=== PATIENT | male | born 1990 | race African-American/Black ===

== ENCOUNTER 2024-04-28 20:43 | Emergency (ER) | payer OTHER, SELFPAY ==
[2024-04-28 20:52] VITALS: BP 141/84; PULSE 83; TEMP 36.7; O2SAT 100; BMI 25.5
--- NOTE | 2024-04-28 21:02 | ED_ITS ---
HPI - URI/Sore Throat General Chief Complaint: Upper Respiratory Infection Stated Complaint: Upper Respiratory Infection Time Seen by Provider: 04/28/24 20:52 Source: patient Limitations: no limitations History of Present Illness HPI Narrative: Patient is a 34-year-old male who presents to the emergency department for cough and congestion. He states he was diagnosed with strep 1 week ago at the [place] emergency department. He was placed on amoxicillin and states he took about 2 days of the medication when he left the prescription at his mother's home. He did not finish the antibiotics. He now complains of cough and congestion over the last several days. He has had no fevers, vomiting or difficulty breathing. He reports mild sputum production with coughing. Related Data Previous Rx's ?Medication ?Instructions ?Recorded yglzmyeytndylmt-[id number]-JC 10 ml PO Q6H PRN cold symptoms 04/28/24 2 mg-30 mg-10 mg/5 mL oral syrup #200 mL (Bromfed DM) cefdinir 300 mg capsule 300 mg PO BID 10 days #20 caps 04/28/24 ondansetron 4 mg disintegrating 4 mg PO Q6H PRN nausea and 04/28/24 tablet vomiting #12 tabs Allergies Allergy/AdvReac Type Severity Reaction Status Date / Time No Known Drug Allergies Allergy Verified 04/28/24 20:56 Review of Systems ROS Constitutional Denies: fever or chills Ears, nose, mouth, and throat Reports: nasal congestion; Denies: throat pain Cardiovascular Denies: chest pain Respiratory Reports: cough; Denies: shortness of breath Gastrointestinal Denies: nausea, vomiting or diarrhea Musculoskeletal Denies: back pain Integumentary/Breast Denies: rash Neurological Denies: numbness in extremities or weakness in extremities Hematologic/Lymphatic Denies: easy bruising or easy bleeding PFSH PFSH Social History Little interest or pleasure in doing things: not at all Feeling down, depressed, or hopeless: not at all Exam Narrative Exam Narrative: Gen.: Awake, alert, in no distress Head: Normocephalic, atraumatic ENT: Moist mucous membranes, bilateral TMs are clear, no pharyngeal erythema, no tonsillar edema. Uvula midline. Clear speech. Respiratory: No respiratory distress, lungs clear bilaterally Cardio: Regular rate and rhythm Extremities: Moves extremities equally Psych: Normal mood and affect Neuro: No focal neuro deficit Skin: Warm, dry, intact Constitutional Vital Signs, click to edit/add: Last Vital Signs Temp 98.1 F 04/28/24 20:52 Pulse 83 04/28/24 20:52 Resp 18 04/28/24 20:52 BP 141/84 04/28/24 20:52 Pulse Ox 100 04/28/24 20:52 O2 Del Method Room Air 04/28/24 20:52 Course Vital Signs Vital signs: Vital Signs Temperature 98.1 F 04/28/24 20:52 Pulse Rate 83 04/28/24 20:52 Respiratory Rate 18 04/28/24 20:52 Blood Pressure 141/84 04/28/24 20:52 Pulse Oximetry 100 04/28/24 20:52 Oxygen Delivery Method Room Air 04/28/24 20:52 Temperature 98.1 F 04/28/24 20:52 Pulse Rate 83 04/28/24 20:52 Respiratory Rate 18 04/28/24 20:52 Blood Pressure 141/84 04/28/24 20:52 Pulse Oximetry 100 04/28/24 20:52 Oxygen Delivery Method Room Air 04/28/24 20:52 MDM - URI/Sore Throat MDM Narrative Medical decision making narrative: This patient arrives to the emergency department with a benign exam, no significant abnormal findings on physical with normal vital signs. I initially intended to treat the patient with a different course of an antibiotic given his recent positive strep and placed him on medication for his upper respiratory symptoms, however his significant other at bedside states that he needs testing done because she is tired of hospitals just treating you without any testing and states they have children at home so he needs to be tested for upper respiratory illness. COVID, influenza and strep testing was ordered even though it will not global director air and climate change. Lab tests are negative as expected, patient treated with cefdinir based on incomplete treatment of strep throat and duration of symptoms. Bromfed-DM and Zofran given for symptoms for home. Return to the ER if symptoms change or worsen SHARED APC VISIT, PHYSICIAN ATTESTATION: [id number]-ql-[id number] I performed a substantive part of the MDM during the patient?s E/M visit. I personally evaluated and examined the patient. I personally made or approved the documented management plan and acknowledge its risk of complications. Medical Records Attestation: I reviewed the patient's medical records. Lab Data Attestation: I reviewed the patient's lab results. Labs: Lab Results 04/28/24 Range/Units 21:04 Influenza Type A Ag Negative Influenza Type B Ag Negative SARS-CoV-2 Ag (CV2AG) Negative (NEGATIVE) Streptococcus Screen Negative Discharge Plan Discharge Chief Complaint: Upper Respiratory Infection Clinical Impression: Upper respiratory infection Patient Disposition: Home, Self-Care Time of Disposition Decision: 21:46 Condition: Good Prescriptions / Home Meds: New eqispgbkyallseo-ylvvdivte-VY [Bromfed DM] 2-30-10 mg/5 mL syrup 10 ml PO Q6H PRN (Reason: cold symptoms) Qty: 200 0RF ondansetron 4 mg tablet,disintegrating 4 mg PO Q6H PRN (Reason: nausea and vomiting) Qty: 12 0RF cefdinir 300 mg capsule 300 mg PO BID 10 Days Qty: 20 0RF Print Language: Azerbaijani Instructions: Upper Respiratory Infection (ED) Additional Instructions: Your testing in the ER was negative, you need to finish your course of antibiotics and follow up with your doctor Please increase your fluids and you can use Motrin/Tylenol for any fevers or body aches Referrals: Physician,Non-Staff, MD [Primary Care Provider] - 1 week
[2024-04-28] MEDS: DEXAMETHASONE SOD PHOS 10 MG/ML VIAL PO (21:25)
[2024-04-28 21:34] LABS: Internal Control Within Normal Limits; Strep A Antigen Screen Negative
[2024-04-28 21:43] LABS: Influenza Virus A Antigen Negative; Influenza Virus B Antigen Negative; Internal Control Within Normal Limits; SARS-CoV-2 Ag NEGATIVE (NEGATIVE)
[2024-04-28] MEDS: CEFDINIR 300 MG CAPSULE 600 MG PO (22:44)
== END 2024-04-28 22:47 | disposition home or self-care (01) ==
PROVIDERS: Physician Assistant; Emergency Provider Emergency Medicine
DX: J06.9 Acute upper respiratory infection, unspecified (principal)
CPT/HCPCS: 87070; 87804; 87811; 87880; 99285; J1100

== ENCOUNTER 2024-07-22 02:34 | Emergency (ER) | payer OTHER, SELFPAY ==
[2024-07-22 02:43] VITALS: BP 156/99; PULSE 79; TEMP 36.8; O2SAT 97; BMI 25.1
--- NOTE | 2024-07-22 02:47 | PC.NURSE ---
complains of nausea now, but did have dizziness and abdomen pain onset 2 hours ago after smoking weed.
--- NOTE | 2024-07-22 02:49 | ED.NAVMDI1 ---
HPI - Nausea/Vomiting/Diarrhea General Chief complaint: Nausea/Vomiting/Diarrhea Stated complaint: NAUSEA, DIZZINESS, STOMACH PAIN Time Seen by Provider: 07/22/24 02:46 Source: patient Mode of arrival: walk-in Limitations: no limitations History of Present Illness HPI Narrative: patient presents complaining of nausea for the past hour associated with light headiness. Did not pass out but felt like he might. Now that he is here symptoms have resolved. No abdominal or chest pain. Not aware of anyone else who is ill Related Data Home Medications ?Medication ?Instructions ?Recorded ?Confirmed No Known Home Medications 07/22/24 07/22/24 Allergies Allergy/AdvReac Type Severity Reaction Status Date / Time No Known Drug Allergies Allergy Verified 07/22/24 02:42 Review of Systems ROS Status of ROS 10 or more systems reviewed and unremarkable except as noted in history and below PFSH [facility] Social History Little interest or pleasure in doing things: not at all Feeling down, depressed, or hopeless: not at all Exam Constitutional Vital Signs, click to edit/add: Last Vital Signs Temp 98.2 F 07/22/24 02:43 Pulse 79 07/22/24 02:43 Resp 18 07/22/24 02:43 BP 156/99 H 07/22/24 02:43 Pulse Ox 97 07/22/24 02:43 O2 Del Method Room Air 07/22/24 02:43 Common normals: no apparent distress, average body habitus, oriented x3, no limitations, healthy appearing, alert and well nourished [facility] Common normals: normocephalic and head/scalp atraumatic Eye Common normals: PERRL and EOMs intact bilaterally Respiratory Common normals: normal respiratory effort, no retractions, no use of accessory muscles and clear to auscultation bilaterally Cardio Common normals: regular rate, regular rhythm, S1 normal heart sound and S2 normal heart sound GI Common normals: Normal to inspection, nondistended, normoactive bowel sounds present, soft to palpation and non-tender Extremity Common normals: normal to inspection and full ROM Neuro Common normals: oriented x3, CN's II-XII intact bilaterally, moves all extremities and no focal motor deficits Psych Appearance: grossly normal Course Vital Signs Vital signs: Vital Signs Temperature 98.2 F 07/22/24 02:43 Pulse Rate 79 07/22/24 02:43 Respiratory Rate 18 07/22/24 02:43 Blood Pressure 156/99 H 07/22/24 02:43 Pulse Oximetry 97 07/22/24 02:43 Oxygen Delivery Method Room Air 07/22/24 02:43 Temperature 98.2 F 07/22/24 02:43 Pulse Rate 79 07/22/24 02:43 Respiratory Rate 18 07/22/24 02:43 Blood Pressure 156/99 H 07/22/24 02:43 Pulse Oximetry 97 07/22/24 02:43 Oxygen Delivery Method Room Air 07/22/24 02:43 MDM - Nausea/Vomiting/Diarrhea MDM Narrative Medical decision making narrative: patient presents with nausea and near syncope . Ongoing symptoms for close to an hour. Resolved by the time arrived here. Labs etc ordered and he decided he did not want any testing and signed out AMA Discharge Plan Discharge Stand Alone Forms: Portal Instructions Chief Complaint: Nausea/Vomiting/Diarrhea Clinical Impression: Near syncope, Nausea Patient Disposition: Left Against Medical Advice Prescriptions / Home Meds: No Action No Known Home Medications Print Language: Persian Referrals: Physician,Non-Staff, [Primary Care Provider] - 1 week Discharge Date/Time: 07/22/24 03:11
--- NOTE | 2024-07-22 03:11 | PC.NURSE ---
this patient refused all of the orders placed by Dr Calhoun, this patient voices no nausea, no dizziness and no abdomen pain. i informed Dr Calhoun of this patient refusing all of the orders, Dr Calhoun voices have him sign a AMA. i took a AMA form into this patient and I explained to him since he is refusing treatment I will need him to sign this AMA form. this patient refused to sign this AMA. I explained to him that if can come back if he needs to. this patient walked out with a female friend
== END 2024-07-22 03:11 | disposition left against medical advice (07) ==
LOC: ER 02:40
PROVIDERS: Emergency Provider Internal Medicine
DX: R55 Syncope and collapse (principal); Z53.29 Procedure and treatment not carried out because of patient's decision for other reasons; R11.0 Nausea
CPT/HCPCS: 80053; 83605; 83690; 84484; 85378; 99281

== ENCOUNTER 2025-01-18 16:01 | Emergency (ER) | payer OTHER, SELFPAY ==
--- OUTSIDE RECORDS SUMMARY | 2018-04-02 07:00 | XMS_ITS | Continuity of Care Document ---
Author Organization [facility] Address [address] [place] [address] Phone Care Team Providers Care Boot Maker Name Role Phone Jasmin COOK Chandler Unavailable Unavailable Allergies, Adverse Reactions, Alerts Substance Reaction Status Criticality No Known Allergies Active No Inform ation Procedures Procedure Date Limited Oral Eval Panoramic Film Extract; Erupted Th/exposted [address] Nutrit Couns For Control Of [place] Dis Mar Tobacco Counseling Oral Hygiene Instruction Advance Directives Directive Yes / No Effective Date File Name No Information Encounters Encounter Description Practice Location Reason(s) For Visit Diagnoses Date Provider Providers Copied on Encounter [facility], [address], [place], [id number], tel:[phone] Dental Clinic dental emergency (chief complaint) Encounter for screening for dental disorders Jasmin COOK Chandler. [address], [place], [id number], [place]. tel:[phone] Family History Family Member Type Diagnosis Age At Onset Father Problem (finding) Alive and well Mother Problem (finding) Alive and well Payers Payer name Insurance type Covered alliance party ID Authoriza tion(s) D Medicaid [facility] [id number] Social History Type Description Quantity Date Captured Comments Alcohol Use Details Unknown Caffeine Use Details Unknown Tobacco Use Status Moderate cigarette s moker (10-19 cigs/day) Smoking Status Heavy tobacco smoker Smoking Tobacco Use Details Cigarette: Age Started: 18 Cigarette: 10 Cigarettes per day [id number] SexMaleSexual OrientationStraight or [id number] Gender [id number] Vital Signs Date / Time: Height Weight BMI Pulse Rate Blood Pressure Temperature Respiratory Rate Body Surface Area Head Circumference Head Circ. Percentile Wt./Zachary. Percentile BMI percentile Pulse Ox Inhaled Ox 11:05 AM 86 /min 132/79 mm[Hg] Chief Complaint And Reason For Visit From encounter dated '04/02/2018 11:00'. dental emergency (chief complaint). Description: dental emergency patient would like an extraction Reason For Referral Reason For Referral No Information History Of Present Illness Encounter Date Complaint History Of Prese nt Illness dental emergency dental emergenc y patient would like an extraction Functional Status Date Functional Assessmen t No Information Instructions Date Instruction Additional Infor mation No Information Assessments Type Assessment Date assessment Encounter for screening for dent al disorders Patient Care Teams Name Effective Dates (start - stop) Status Members No Information
--- OUTSIDE RECORDS SUMMARY | 2025-01-10 02:26 | XMS_ITS | Encounter Summary ---
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 [phone] Daya Santos, DIRECTOR HARDWARE-PLANTING MATERIAL REMOVER [address] [place] [address] Randi Albrecht, PABrittneeC [address] [place] [address] NameTypePriorityAssociated DiagnosesOrder ScheduleProMedica Physicians [facility] - [place], [place]Outpatient ReferralRoutine Chest pain 1 Occurrences starting 01/11/2025 until 01/11/2026documented as of this encounter Goals GoalPatient Goal TypeAssociated ProblemsRecent ProgressPatient-Stated?Author Home with self care Kyra Fernandes, ROSS Note: Evaluation of progress towards goal: Patient plans to return home with self care. documented as of this encounter Procedures Procedure NamePriorityDate/TimeAssociated DiagnosisCommentsNUC STRESS LEXISCAN Wlvxcel4001/11/2025 10:55 AM EDT EXTRA TUBES BLUE MTPWhvfewz30/21/2025 5:43 AM EDT EXTRA OXHPPKnixlcw44/21/2025 5:43 AM EDT CBC WITH AUTO TAHZKLAXSURSRejkzfm60/21/2025 5:43 AM EDT YHVTDVFSIKgvodjf30/21/2025 5:43 AM EDT COMPREHENSIVE METABOLIC TAKUKAlsodhd19/21/2025 5:43 AM EDT TROPONIN I, HIGH FLGKKPQADCEEXVQ18/20/2025 9:26 PM EDT TROPONIN I, HIGH QSCKGLDGNFWCORI24/20/2025 12:53 PM EDT ECHO COMPLETE WO SYRVDHVQOoinklp41/20/2025 11:21 AM EDT TROP I, HIGH SENSITIVITY 1 EQBVDQWM24/20/2025 3:[address] CTA DTARPOVBZ18/20/2025 3:20 AM EDT TROPONIN I, HIGH SENSITIVITY 0 OGDOPBXU17/20/2025 2:47 AM EDT TROPONIN I, HIGH SENSITIVITY 0 JECRUZIW90/20/2025 2:47 AM EDT CBC WITH AUTO FKOYYXJSAJPDFZWS91/20/2025 2:47 AM EDT BLUE OAYXLBC0301/10/2025 2:47 AM EDT RAINBOW RUHUFMFZ70/20/2025 2:47 AM EDT LIPID PROFILEAdd-On01/10/2025 2:47 AM EDT BASIC METABOLIC TQITFTHFM14/20/2025 2:47 AM EDT ECG 12-VFKPFRVR26/20/2025 2:34 AM EDT ECG 12-OMQQNIAD12/20/2025 2:28 AM EDTdocumented in this encounter Results * Nuc stress Lexiscan (01/11/2025 10:55 AM EDT)ComponentValueRef RangeTest MethodAnalysis TimePerformed AtPathologist SignatureTarget IW277ydnWZZFEJBDDU IO74pdjBCFDTUZERKCabnia peak SF560lxnMNKPVHWOBCXvdzovmo Systolic VK623naOb SECTRAIECGDiastolic QG25aoEzWEUBVOBYAWZzaymt peak systolic OE315kkYuTVAGXLZSDT Diastolic BO75ntVqLAJGRRTMHYCB65ggtJMHREJQMERUiejnc recovery systolic BP128 mmHgSECTRAIECGDiastolic NT66ciDaERYOXULLRZIjgiztk HR59%SECTRAIECGNuc Stress EF 61%SECTRAIECGEnd diastolic volume (mL)134mLSECTRAIECGEnd systolic volume (mL) 61sUJXZWDWKALACQQ6.22SECTRAIECGAnatomical RegionLateralityModalityChestN/A Nuclear Medicine, Nuclear MedicineSpecimen (Source)Anatomical Location / LateralityCollection Method / VolumeCollection TimeReceived Time Narrative 01/11/2025 12:07 PM EDT Stress Function Comments: Left ventricular function post-stress is normal. Stress ejection fraction is 61%. ?No ischemic ECG changes with Lexiscan ?Nuclear study shows a reversible defect in the apex is most likely artifactual but can not rule out a small amount of ischemia ?Normal LV function ?Probably low risk stress test by nuclear criteria Stress Findings A Lexiscan protocol was performed. A pharmacological stress test was performed using regadenoson. The patient reported dyspnea and flushing during the stress test. Symptoms began during stress and ended during recovery. ECG Baseline ECG indicates sinus rhythm. The stress ECG was negative. Isotope Administration The isotope used for nuclear imaging was technetium sestamibi. Imaging was performed at rest after an administration on 01/11/2025 at 07:50 EDT of 10.3 mCi. Imaging was performed at peak stress afteran administration on 01/11/2025 at 09:36 EDT of 30.8 mCi. Nuclear Study Quality A Lexiscan protocol was performed. Perfusion Comments Left ventricular perfusion is probably normal. Based on the perfusion study data, risk of cardiovascular events is low risk. The study is normal. Perfusion Defect There is a left ventricular function defect that is small in size present in the apical location(s)that is reversible. The defect appears to be probable artifact. Perfusion Defect Conclusion TID ratio is 1.22. Stress Function Comments Left ventricular function post-stress is normal. Stress ejection fraction is 61%. Authorizing ProviderResult TypeResult StatusSalomeniharika Santos DIRECTOR HARDWARE-CNPCV STRESS ORDERABLESFinal Result * Light Blue Top (01/11/2025 5:43 AM EDT)ComponentValueRef RangeTest Method Analysis TimePerformed AtPathologist SignatureExtra TubeAuto Resulted 01/11/2025 7:01 AM EDKETTERING [facility]ALTH BEHAVIORAL MEDICAL CENTERpecimen (Source) Anatomical Location / LateralityCollection Method / VolumeCollection Time Received TimeBloodVenous blood / Lycnwax8801/11/2025 5:43 AM EDT1 5:50 AM EDT Narrative Authorizing ProviderResult TypeResult StatusRukishan NUGENT BLOOD ORDERABLESFinal ResultPerforming OrganizationAddressCity/State/ZIP CodePhone Number [facility] [address] [place] [address], * CBC auto differential (01/11/2025 5:43 AM EDT)ComponentValueRef RangeTest MethodAnalysis TimePerformed AtPathologist SignatureWBC8.84 - 11 x10E9/L 01/11/2025 6:04 AM [facility]ITALRBC Count4.714.1 - 5.7 X10E12/L1 6:04 AM [facility] Qxxgeaabav56.413 - 17 g/dL01/11/2025 6:04 AM [facility]ITALHematocrit39.639 - 50 %01/11/2025 6:04 AM EDOH[facility] HOSPITALMCV8480 - 100 fL01/11/2025 6:04 AM EDTPACCESS HOSPITAL DAYTONMCH28.427 - 34 pg01/11/2025 6:04 AM EDOHIOHEALTH HARDIN MEMORIAL HOSPITALMCHC33.832 - 36 g/dL01/11/2025 6:04 AM [facility]ITALRDW14.011.5 - 15 %01/11/2025 6:04 AM [facility]ITALPlatelet Imvss369961 - 450 X10E9/L1 6:04 AM EDT [facility]ITALMPV8.07 - 12 fL01/11/2025 6:04 AM EDT [facility]ITALNeutrophils %60.3%01/11/2025 6:04 AM EDT [facility]ITALLymphocytes %29.8%01/11/2025 6:04 AM EDT [facility]OSPITALMonocytes %8.2%01/11/2025 6:04 AM EDT [facility] HOSPITALEosinophils %0.9%01/11/2025 6:04 AM EDT [facility]ITALBasophils %0.8%01/11/2025 6:04 AM EDT [facility]OS[facility]ITALNeutrophils Absolute (A)5.31.5 - 6.6 10*3/uL01/11/2025 6:04 AM EDOHIOHEALTH HARDIN MEMORIAL HOSPITALLymphocytes Absolute2.61.0 - 3.5 10*3/uL01/11/2025 6:04 AM EDTPMIAMI VALLEY [facility]ITAL HOSPITALMonocytes Absolute0.70.0 - 0.9 10*3/uL01/11/2025 6:04 AM EDTPACCESS HOSPITAL DAYTONEosinophils Absolute0.10.0 - 0.4 10*3/uL01/11/2025 6:04 AM EDOHIOHEALTH HARDIN MEMORIAL HOSPITALBasophils Absolute0.10.0 - 0.2 10*3/uL01/11/2025 6:04 AM [facility]OSPITALDifferential TypeAUTOMATED NZHXCWVVDZAN42/21/2025 6:04 AM [facility] SYSTEMpecimen (Source)Anatomical Location / LateralityCollection Method / VolumeCollection TimeReceived TimeBloodVenous blood / UnknownVenipuncture / Zoozwmv6301/11/2025 5:43 AM EDT1 5:48 AM EDT Narrative Authorizing ProviderResult TypeResult StatusLakisha Mcdonald DIRECTOR HARDWARE-CNPLAB BLOOD ORDERABLESFinal ResultPerforming OrganizationAddressCity/State/ZIP CodePhone Number [address] [place] [address], * Magnesium (01/11/2025 5:43 AM EDT)ComponentValueRef RangeTest MethodAnalysis TimePerformed AtPathologist SignatureMAGNESIUM1.81.8 - 2.6 mg/dL01/11/2025 6:13 AM EDKETTERING HEALTH BEHAVIORAL MEDICAL CENTERpecimen (Source)Anatomical Location / LateralityCollection Method / VolumeCollection TimeReceived Time BloodVenous blood / UnknownVenipuncture / Eykbmfl1401/11/2025 5:43 AM EDT 01/11/2025 5:48 AM EDT Narrative Authorizing ProviderResult TypeResult StatusLakisha Mcdonald DIRECTOR HARDWARE-CNPLAB BLOOD ORDERABLESFinal ResultPerforming OrganizationAddressCity/State/ZIP CodePhone Number [address] [place] [address], [place] * Comprehensive metabolic panel (01/11/2025 5:43 AM EDT)ComponentValueRef Range Test MethodAnalysis TimePerformed AtPathologist PnjpievegCAXXMM383464 - 146 mmol/L1 6:13 AM [facility]OS[facility]ITALPOTASSIUM3.63.5 - 5.0 mmol/L1 6:13 AM [facility] HOSPITALCHLORIDE 14013 - 109 mmol/L1 6:13 AM [facility] CARBON UXFKEDA4439 - 32 mmol/L1 6:13 AM EDOHIOHEALTH HARDIN MEMORIAL HOSPITALANION GAP85 - 15 mmol/L1 6:13 AM [facility]OSPITALBLOOD UREA XEEUVNFU905 - 23 mg/dL01/11/2025 6:13 AM EDT [facility]ITALCREATININE0.980.70 - 1.20 mg/dL01/11/2025 6:13 AM [facility]PITALComment:METHOD TRACEABLE TO IDMS XYGJAINXWLSAQHV9492 - 99 mg/dL01/11/2025 6:13 AM [facility]OSPITALCALCIUM8.88.5 - 10.5 mg/dL01/11/2025 6:13 AM EDOHIOHEALTH HARDIN MEMORIAL HOSPITALTOTAL PROTEIN6.66.0 - 8.0 g/dL01/11/2025 6:13 AM EDT [facility]ITALALBUMIN3.43.2 - 5.3 g/dL01/11/2025 6:13 AM [facility]OSPITALALKALINE GRCRMNWUTWH40528 - 130 U/L 01/11/2025 6:13 AM EDOHIOHEALTH HARDIN MEMORIAL HOSPITALAST13<=41 U/L 01/11/2025 6:13 AM [facility]ITALALT10<=40 U/L 01/11/2025 6:13 AM [facility] HOSPITALBILIRUBIN,TOTAL0.70.3 - 1.2 mg/dL01/11/2025 6:13 AM [facility] HOS[facility]ITALEGFR Non- Race Dependent>90>=60 ml/min/1.73sq.m1 6:13 AM [facility]ITALComment: eGFR not reported due to non-numeric value for Creatinine. Reported eGFR is based on the CKD-EPI 2020 equation that does not use a race coefficient. Specimen (Source)Anatomical Location / LateralityCollection Method / Volume Collection TimeReceived TimeBloodVenous blood / UnknownVenipuncture / Unknown 01/11/2025 5:43 AM EDT1 5:48 AM EDT Narrative Authorizing ProviderResult TypeResult StatusHanjuany Mcdonald DIRECTOR HARDWARE-CNPLAB BLOOD ORDERABLESFinal ResultPerforming OrganizationAddressCity/State/ZIP CodePhone Number [facility] [address] [place] [address], * Troponin I, High Sensitivity (01/10/2025 9:26 PM EDT)ComponentValueRef Range Test MethodAnalysis TimePerformed AtPathologist SignatureTROPONIN I, HIGH SENSITIVITY2<21 ng/L1 10:37 PM [facility] Specimen (Source)Anatomical Location / LateralityCollection Method / Volume Collection TimeReceived TimeBlood (Other)Venipuncture / Efddgbb2201/10/2025 9:26 PM EDT1 9:59 PM EDT Narrative Authorizing ProviderResult TypeResult [facility] CenterLakisha Mcdonald [facility] DANVILLELAB BLOOD ORDERABLESFinal ResultPerforming OrganizationAddressCity/State/ZIP CodePhone Number [address] [place] [address], [place] * Troponin I, High Sensitivity (01/10/2025 12:53 PM EDT)ComponentValueRef Range Test MethodAnalysis TimePerformed AtPathologist SignatureTROPONIN I, HIGH SENSITIVITY2<21 ng/L1 1:35 PM EDTPACCESS HOSPITAL DAYTON Specimen (Source)Anatomical Location / LateralityCollection Method / Volume Collection TimeReceived TimeBlood (Other)Venipuncture / Ucqfmfb3001/10/2025 12:53 PM EDT1 12:57 PM EDT Narrative Authorizing ProviderResult TypeResult [facility] CenterAlbertoabril Mcdonald [facility] DAN[facility]LELAB BLOOD ORDERABLESFinal ResultPerforming OrganizationAddressCity/State/ZIP CodePhone Number [address] [place] [address], [place] * Echo complete W/O contrast (01/10/2025 11:21 AM EDT)ComponentValueRef Range Test MethodAnalysis TimePerformed AtPathologist SignatureLV Systolic Volume 34.98dEHPOAMRJFZ90%WMRQJCNXY9117 - 44 %XCELERALV Diastolic Wjcmzt860.00mL XCELERALVIDd4.855.05 - 7.01 cmXCELERALVIDs3.052.97 - 4.49 cmXCELERAIVS0.730.6 - 1.1 cmXCELERAPW0.810.6 - 1.1 cmXCELERALVOT diameter2.89sjLCCAMBLOYG53.40cm/s XCELERAMV TDI E' (medial)13.00cm/sXCELERALA Volume Index30.0mL/t6CSEHTSQM/A ratio2.30XCELERAE wave deceleration txyy138.00msecXCELERAMV Peak E Shx792.00 cm/sXCELERAMV Peak A Vel46.60cm/sXCELERALA size3.90cmXCELERAAortic root3.10cm XCELERALA .88zf0NJAASSAGQ diastolic dimension (basal)38.3mmXCELERA TAPSE2.47cmXCELERAAV peak bib691.00cm/sXCELERALVOT peak vel1.00m/sXCELERAAV peak gradient8.29mmHgXCELERAMV pressure 1/2 time67.00msXCELERAMV valve area p 1/2 method3.53jp9WVAJYSNJZ Peak Vel2.1m/sXCELERATR peak oihtwxef46.31mmHg XCELERALV ESV A2C55.60mLXCELERALV ESV A4C60.10mLXCELERALV RWT 2D33.48XCELERA Echo EF Sddllyhuu66%XCELERALeft Ventricle Kpkk839.001536211705370yMKWDZRB Interventricular Septum Diastolic Thickness by 2D7.32cmXCELERAEst. RA pressure 3mmHgXCELERARV Peak Systolic Wdjnqdpt27ijCzUKRRVFYJJ max vel2.10m/sXCELERAMV E' atdoost21.0cm/gPOZCOFJNEOT05.2cm/sXCELERARA area17.8rn1MMLTNOTUTWJXZ-0.42 XCELERAZLVIDD-2.05XCELERAEnergy loss index15.24XCELERAAnatomical Region LateralityModalityChestN/AUltrasoundSpecimen (Source)Anatomical Location / LateralityCollection Method / VolumeCollection TimeReceived Time Narrative 01/10/2025 1:25 PM EDT Left Ventricle: Left ventricle appears normal in size. Systolic function is normal with an ejection fraction of 65-70%. The quantitative EF by 2D Macedo biplane is 69%. Left Ventricle Left ventricle appears normal in size. Wall thickness is normal. Systolic function is normal with an ejection fraction of 65-70%. The quantitative EF by 2D Macedo biplane is 69%. No obvious regionalwall motion abnormalities. There is no diastolic dysfunction and normal left atrial pressure. Lateral E' is 15.40 cm/s. Medial E' is 13.00 cm/s. Average E' is 14.0 cm/s. Right Ventricle Right ventricular size appears normal. The right ventricular basal diameter is 38.3 mm. Systolic function is normal. Left Atrium Left atrium is normal in size. The left atrial volume index is 30.0 mL/m2. Right Atrium Right atrium is normal in size. The right atrial area is 17.0 cm2. IVC/SVC The right atrial pressure is estimated at 3 mmHg. IVC appears normal. There is normal collapse withdeep inspiration. Mitral Valve The leaflets are mildly thickened and exhibit normal excursion. There is trace regurgitation. Thereis no evidence of mitral valve stenosis. Tricuspid Valve Tricuspid valve appears to be normal. There is trace to mild regurgitation. RVSP calculated at 20 mmHg. RVSP is based on RA pressure of 3 mmHg. Aortic Valve The aortic valve is trileaflet. There is no regurgitation or stenosis. Pulmonic Valve Pulmonic valve structure is grossly normal. There is mild regurgitation. Ascending Aorta The aortic root is normal in size. Pericardium There is no pericardial effusion. Study Details A complete echo was performed using complete 2D, color flow Doppler and spectral Doppler. Overall the study quality was adequate. Wall Scoring Baseline Score Index: 1.00 The left ventricular wall motion is normal. Authorizing ProviderResult TypeResult StatusLakisha ROECV ECHO ORDERABLESFinal Result * Troponin I, High Sensitivity 1 Hour (01/10/2025 3:55 AM EDT)ComponentValueRef RangeTest MethodAnalysis TimePerformed AtPathologist SignatureTROPONIN I, HIGH SENSITIVITY3<21 ng/L1 4:25 AM [facility]TPROM[facility] Specimen (Source)Anatomical Location / LateralityCollection Method / Volume Collection TimeReceived TimeBloodVenous blood / UnknownVenipuncture / Unknown 01/10/2025 3:55 AM EDT1 3:57 AM EDT Narrative Authorizing ProviderResult TypeResult StatusRj MADSEN BLOOD ORDERABLESFinal ResultPerforming OrganizationAddressCity/State/ZIP CodePhone Number [facility] [address] [place] [address], * CT angiogram chest (01/10/2025 3:20 AM EDT)Anatomical RegionLateralityModality Lung, Body, Chest, Vascular, Body CoveraN/AComputed TomographySpecimen (Source)Anatomical Location / LateralityCollection Method / VolumeCollection TimeReceived Time01/10/2025 3:31 AM EDT Narrative 01/10/2025 3:36 AM EDT CTA CHEST COMPARISON: ??03/14/2023 HISTORY: chest pain with radiation to shoulder, recent surgery. TECHNIQUE: Omnipaque 350 nonionic contrast injected intravenously without reported complication. Thin section axial images of the thorax obtained with multiplanar reformatted 3-D MIP images of the thorax generated under concurrent physician supervision and reviewed. ??Automatic exposure control (AEC) was utilized. FINDINGS: No evidence for acute main, central, or lobar pulmonary emboli. ??Evaluation for segmental and subsegmental emboli is compromised by patient motion artifact, artifact from dense contrast in the SVC and left brachiocephalic vein, and contrast bolus timing. No pneumothorax. No pleural or pericardial effusion. No focal consolidation. IMPRESSION: 1. No evidence for acute main, central, or lobar pulmonary emboli. ??Evaluation for segmental and subsegmental emboli is compromised as described. 2. No other evidence for an acute cardiopulmonary process. All CT scans at this facility use dose modulation, iterative reconstruction, and/or weight based dosing when appropriate to reduce radiation dose to as low as reasonably achievable. Finalized by Olivier Shannon MD on 01/10/2025 3:36 AM Procedure Note Olivier Shannon MD - 01/10/2025 CTA CHEST COMPARISON: 03/14/2023 HISTORY: chest pain with radiation to shoulder, recent surgery. TECHNIQUE: Omnipaque 350 nonionic contrast injected intravenously without reported complication. Thin section axial images of the thorax obtainedwith multiplanar reformatted 3-D MIP images of the thorax generated underconcurrent physician supervision and reviewed. Automatic exposure control(AEC) was utilized. FINDINGS: No evidence for acute main, central, or lobar pulmonary emboli.Evaluation for segmental and subsegmental emboli is compromised by patientmotion artifact, artifact from dense contrast in the SVC and leftbrachiocephalic vein, and contrast bolus timing. No pneumothorax. Nopleural or pericardial effusion. No focal consolidation. IMPRESSION: 1. No evidence for acute main, central, or lobar pulmonary emboli.Evaluation for segmental and subsegmental emboli is compromised asdescribed. 2. No other evidence for an acute cardiopulmonary process. All CT scans at this facility use dose modulation, iterativereconstruction, and/or weight based dosing when appropriate to reduceradiation dose to as low as reasonably achievable. Finalized by Olivier Shannon MD on 01/10/2025 3:36 AM Authorizing ProviderResult TypeResult StatusRj Gomez [facility] CT ORDERABLESFinal Result * (ABNORMAL) Lipid profile (01/10/2025 2:47 AM EDT)ComponentValueRef RangeTest MethodAnalysis TimePerformed AtPathologist SsuagqaihJRYCEEFQZBA494(L)150 - 200 mg/dL01/10/2025 10:39 AM [facility] LABORATORYTRIGLYCERIDE [address]506 - 150 mg/dL01/10/2025 10:39 AM [facility] LABORATORYHDL VNWSYLEISJA89>39 mg/dL01/10/2025 10:39 AM [facility] LABORATORYComment: HDL <40 mg/dL - High Risk HDL > or = 40mg/dL- Desirable HDL >60 mg/dL - Negative Risk LDL (CALC)81<130 mg/dL01/10/2025 10:39 AM [facility] Comment: LDL <100 mg/dL - Desirable LDL >160 mg/dL - High Risk CHOLESTEROL:HDL3.41.0 - 5.010 10:39 AM [facility] LABORATORYVERY LOW TPLMQXTJGKL478 - 30 mg/dL01/10/2025 10:39 AM [facility] LABORATORYSpecimen (Source)Anatomical Location / Laterality Collection Method / VolumeCollection TimeReceived TimeBloodVenous blood / Wcuoioy1701/10/2025 2:47 AM EDT1 2:51 AM EDT Narrative Authorizing ProviderResult TypeResult StatusLakisha Mcdonald APRN-CNPLAB BLOOD ORDERABLESFinal ResultPerforming OrganizationAddressCity/State/ZIP CodePhone Number [facility] [address] [place] [address], [place] [phone] * Light Blue Top (01/10/2025 2:47 AM EDT)ComponentValueRef RangeTest Method Analysis TimePerformed AtPathologist SignatureExtra TubeAuto Resulted 01/10/2025 4:03 AM [facility]pecimen (Source) Anatomical Location / LateralityCollection Method / VolumeCollection Time Received TimeBloodVenous blood / Qayqbhb0501/10/2025 2:47 AM EDT1 2:51 AM EDT Narrative Authorizing ProviderResult TypeResult StatusMaxwell J Buchwalder [facility]AB BLOOD ORDERABLESFinal ResultPerforming OrganizationAddressCity/State/ZIP CodePhone Number [address] [place] [address], [place] * Troponin I, High Sensitivity 0 Hour (01/10/2025 2:47 AM EDT)ComponentValueRef RangeTest MethodAnalysis TimePerformed AtPathologist SignatureTROPONIN I, HIGH SENSITIVITY3<21 ng/L1 3:19 AM [facility] Specimen (Source)Anatomical Location / LateralityCollection Method / Volume Collection TimeReceived TimeBloodVenous blood / Tzfubty3501/10/2025 2:47 AM EDT 01/10/2025 2:51 AM EDT Narrative Authorizing ProviderResult TypeResult StatusMaxwell J St. [facility]S Medical Centerwalder [facility]ITALAB BLOOD ORDERABLESFinal ResultPerforming OrganizationAddressty/State/ZIP CodePhone Number [address] [place] [address], [place] * (ABNORMAL) Basic Metabolic Panel (01/10/2025 2:47 AM EDT)ComponentValueRef RangeTest MethodAnalysis TimePerformed AtPathologist TigqmisszEZVWQC499640 - 146 mmol/L1 3:06 AM [facility]PITALPOTASSIUM 4.03.5 - 5.0 mmol/L1 3:06 AM [facility] GNJWFJZD50312 - 109 mmol/L1 3:06 AM [facility] HOSPITALCARBON QEJOHRA5858 - 32 mmol/L1 3:06 AM [facility] HOSPITALANION GAP85 - 15 mmol/L1 3:06 AM [facility] HOSPITALBLOOD UREA NMDQGTMZ983 - 23 mg/dL01/10/2025 3:06 AM [facility]OSPITALCREATININE1.31(H)0.70 - 1.20 mg/dL 01/10/2025 3:06 AM [facility]PITALComment:METHOD TRACEABLE TO IDMS GOERHGODHZTURDH0269 - 99 mg/dL01/10/2025 3:06 AM EDT [facility]ITALCALCIUM9.28.5 - 10.5 mg/dL01/10/2025 3:06 AM [facility] HOSPITALEGFR Non-Race Wbfnlbcdy73>=60 ml/min/1.73sq.m1 3:06 AM [facility] Comment: eGFR not reported due to non-numeric value for Creatinine. Reported eGFR is based on the CKD-EPI 2020 equation that does not use a race coefficient. Specimen (Source)Anatomical Location / LateralityCollection Method / Volume Collection TimeReceived TimeBloodVenous blood / Gfnjeqz5201/10/2025 2:47 AM EDT 01/10/2025 2:51 AM EDT Narrative Authorizing ProviderResult TypeResult StatusMaxivory MADSEN BLOOD ORDERABLESFinal ResultPerforming OrganizationAddressCity/State/ZIP CodePhone Number [facility] [address] [place] [address], * (ABNORMAL) CBC auto differential (01/10/2025 2:47 AM EDT)ComponentValueRef RangeTest MethodAnalysis TimePerformed AtPathologist SignatureWBC8.14 - 11 x10E9/L1 3:03 AM [facility] HOSPITALRBC Count4.58 4.1 - 5.7 X10E12/L1 3:03 AM [facility]OH[facility] Uwwaxcyysa37.013 - 17 g/dL01/10/2025 3:03 AM EDOHIOHE[facility]ARDIN [facility]ORIAL HOSPITALHematocrit38.8(L)39 - 50 %01/10/2025 3:03 AM EDOHIOHE[facility]IN [facility]OR[facility] HOSPITALMCV8580 - 100 fL01/10/2025 3:03 AM EDOHIOHE[facility]ARDIN [facility]ORIAL HOSPITALMCH28.427 - 34 pg01/10/2025 3:03 AM EDOHIOHE[facility]ARDIN [facility]ORIAL HOSPITALMCHC33.532 - 36 g/dL01/10/2025 3:03 AM EDOHIOHEALTH HARDIN MEMORIAL HOSPITALRDW13.911.5 - 15 %01/10/2025 3:03 AM EDOHIOHEALTH HARDIN MEMORIAL HOSPITALPlatelet Urtpj377726 - 450 X10E9/L1 3:03 AM EDT [facility]ITALMPV8.27 - 12 fL01/10/2025 3:03 AM EDT [facility] HOSPITALNeutrophils %50.6%01/10/2025 3:03 AM EDT [facility] HOSPITALLymphocytes %39.6%01/10/2025 3:03 AM EDT [facility]PITALMonocytes %7.5%01/10/2025 3:03 AM EDT [facility]OS[facility]ITALEosinophils %1.3%01/10/2025 3:03 AM EDT [facility]OS[facility]ITALBasophils %1.0%01/10/2025 3:03 AM EDT [facility]ITALNeutrophils Absolute (A)4.11.5 - 6.6 10*3/uL01/10/2025 3:03 AM EDTPACCESS [facility] DAYTONLymphocytes Absolute3.21.0 - 3.5 10*3/uL01/10/2025 3:03 AM EDTPACCESS [facility]OSPITAL DAYTONMonocytes Absolute0.60.0 - 0.9 10*3/uL01/10/2025 3:03 AM EDOH[facility]ITALEosinophils Absolute0.10.0 - 0.4 10*3/uL01/10/2025 3:03 AM EDOH[facility]PITALBasophils Absolute0.10.0 - 0.2 10*3/uL01/10/2025 3:03 AM [facility]ITALDifferential TypeAUTOMATED AKNKREKWAEQY35/20/2025 3:03 AM [facility] SYSTEMpecimen (Source)Anatomical Location / LateralityCollection Method / VolumeCollection TimeReceived TimeBloodVenous blood / Riqpocr8701/10/2025 2:47 AM EDT1 2:51 AM EDT Narrative Authorizing ProviderResult TypeResult StatusMaxivory Gomez DOL BLOOD ORDERABLESFinal ResultPerforming OrganizationAddressCity/State/ZIP CodePhone Number [facility] [address] [place] [address], * ECG 12 lead (01/10/2025 2:34 AM EDT)Specimen (Source)Anatomical Location / LateralityCollection Method / VolumeCollection TimeReceived Time01/10/2025 2:34 AM EDT Narrative TRACEMASTERVUE - 01/10/2025 8:09 AM EDT Authorizing ProviderResult TypeResult StatusNew Roadsivory Gomez [facility] [place] ORDERABLESFinal ResultPerforming OrganizationAddressty/[facility]/ZIP CodePhone Number TRACEMASTERVUE * ECG 12 lead (01/10/2025 2:28 AM EDT)Specimen (Source)Anatomical Location / LateralityCollection Method / VolumeCollection TimeReceived Time01/10/2025 2:28 AM EDT Narrative Authorizing ProviderResult TypeResult StatusNew Roadsivory Gomez DOECG ORDERABLESFinal ResultPerforming OrganizationAddressCity/State/ZIP CodePhone Number TRACEMASTERVUE documented in this encounter Visit Diagnoses Diagnosis Chest pain- Primary Unspecified chest pain Chest pain Unspecified chest pain Tobacco abuse Tobacco use disorder Alcohol abuse Nondependent alcohol abuse, unspecified drinking behavior documented in this encounter Admitting Diagnoses Diagnosis Chest pain Unspecified chest pain documented in this encounter Administered Medications Medication OrderMAR ActionAction DateDoseRateSite acetaminophen (TYLENOL) tablet 650 mg 650 mg, oral, Every 6 hours PRN, mild pain - pain scale 1-3, temperature greater than 38 C, Starting on Fri01/10/25 at 0446, [Warning: Total Acetaminophen not to exceed more than 4 grams (4000 mg) in 24 hours] alum-mag hydroxide-simeth (MAALOX) 200-200-20 mg/5 mL suspension 30 mL 30 mL, oral, 4 times daily after meals and at bedtime as needed, dyspepsia, Starting on Fri01/10/25 at 0446, Look-alike/sound-alike medication - verify indication for use. [place] fernández, Indications: dyspepsia Indications:dyspepsia enoxaparin (LOVENOX) syringe 40 mg 40 mg, subcutaneous, Every 24 hours scheduled, First dose on Fri01/11/25 at 0600, Look-alike/sound-alike medication - verify indication for use. Given01/11/2025 6:13 AM EDT40 mgLeft Arm gabapentin (NEURONTIN) capsule 300 mg 300 mg, oral, Daily, First dose on Fri01/10/25 at 1900, Look-alike/sound-alike medication - verifyindication for use. Given01/11/2025 10:05 AM BEK392 arTyqtk4301/10/2025 8:28 PM EEK763 mg HYDROcodone-acetaminophen (NORCO) 5-325 mg per tablet 1 tablet 1 tablet, oral, Daily, First dose on Fri01/10/25 at 1900, Look-alike/sound-alike medication - verify indication for use. Given01/11/2025 10:05 AM EDT1 ebqkzeTninq79/20/2025 8:28 PM EDT1 tablet iohexoL (OMNIPAQUE) 350 mg iodine/mL injection 100 mL 100 mL, intravenous, Once in imaging, contrast, Starting on Fri01/10/25 at 0259, For 1 dose, VESICANT (RED) Given01/10/2025 3:24 AM CWH323 mL kit for Tc 99m-sestamibi injection 10 millicurie 10 millicurie, intravenous, Once in imaging, contrast, Radiopharmaceutical, Starting on Fri01/11/25 at 0800, For 1 dose, Indications: diagnostic imaging Indications:diagnostic ushflfbXrbnz51/21/2025 7:50 AM EDT10 millicuries kit for Tc 99m-sestamibi injection 30 millicurie 30 millicurie, intravenous, Once in imaging, contrast, Radiopharmaceutical, Starting on Fri01/11/25 at 0800, For 1 dose, Indications: diagnostic imaging Indications:diagnostic ehuxccrEfydp91/21/2025 9:36 AM EDT30 millicuries magnesium sulfate IVPB 2000 mg/50 mL in iso-osmotic water (40 mg/mL premix) 2,000 mg, intravenous, at 25 mL/hr, Administer over 120 Minutes, As needed, Magnesium level 1.7-1.9, Starting on Fri01/10/25 at 0447, Recheck magnesium level 4 hours after infusion complete. With each magnesium result continue the replacement orders as needed. New 01/11/2025 11:26 AM EDT2,000 mg25 mL/hr magnesium sulfate IVPB 4000 mg/100 mL in iso-osmotic water (40 mg/mL premix) 4,000 mg, intravenous, at 25 mL/hr, Administer over 240 Minutes, As needed, Magnesium level 1.6 mg/dL or less, Starting on Fri01/10/25 at 0447, Recheck magnesium level 4 hours after infusion complete. With each magnesium result continue the replacement orders as needed. nitroglycerin (NITROSTAT) disintegrating tablet 0.4 mg 0.4 mg, sublingual, Every 5 min PRN, chest pain, Starting on Fri01/10/25 at 0512, Administer up to3 doses. Hold nitrates and notify prescriber as needed for Systolic Blood Pressure less than 100 mmHg. ondansetron (PF) (ZOFRAN) injection 4 mg 4 mg, intravenous, Every 4 hours PRN, nausea, vomiting, Starting on Fri01/10/25 at 0446, Intravenous administration preferred to be given over 2-5 minutes. potassium chloride (KAYCIEL) 20 mEq/15 mL solution 30-40 mEq 30-40 mEq, oral, As needed, Potassium Supplementation, Starting on Fri01/10/25 at 0447, Progress to oral potassium replacement when patient tolerating oral intake. If dose administered, recheck potassium level 4 hours after last dose. For potassium level 3.4 to 3.8 mmol/L and GFR 30 mL/min or greater=30 mEq. For potassium level 3.1 to 3.3 mmol/L and GFR 30 mL/min or greater=40 mEq. For potassiumlevel 3 mmol/L or less and GFR 30 mL/min or greater=50 mEq. Must dilute before use - Mix in 3-8 ounces of water or juice before administration When administering in feeding tube, flush before and after per policy and monitor potassium levels potassium chloride (KLOR-CON M 20) CR tablet 30-40 mEq 30-40 mEq, oral, As needed, Potassium Supplementation, Starting on Fri01/10/25 at 0447, Progress to oral potassium replacement when patient tolerating oral intake. If dose administered, recheck potassium level 4 hours after last dose. For potassium level 3.4 to 3.8 mmol/L and GFR 30 mL/min or greater=30 mEq. For potassium level 3.1 to 3.3 mmol/L and GFR 30 mL/min or greater=40 mEq. For potassiumlevel 3 mmol/L or less and GFR 30 mL/min or greater=50 mEq. Do not crush or chew. Given01/11/2025 11:23 AM EDT30 mEq potassium chloride IVPB 10 mEq/100 mL in water (0.1 mEq/mL premix) 10 mEq, intravenous, at 100 mL/hr, Administer over 60 Minutes, As needed, POTASSIUM REPLACEMENT, Starting on Fri01/10/25 at 0447, IV if unable to use oral/enteral with the current dosing strategies Potassium level 3 mmol/L or less administer Potassium Chloride 50 mEq Potassium level 3.1 to 3.3 mmol/L administer Potassium Chloride 40 mEq Potassium level 3.4 to 3.8 mmol/L administer Potassium Chloride 30 mEq Use central line when applicable. Recheck potassium level 1 hour after total IVPB infusion complete, With each potassium result continue the replacement orders as needed VESICANT (YELLOW) Infuse each 10 mEq over a minimum of 1 hour. regadenoson (LEXISCAN) injection 0.4 mg 0.4 mg, intravenous, Once, On Fri01/11/25 at 0800, For 1 dose, Intra-Procedure (CV), Administer over 10 seconds followed by 5 mL saline flush. Given01/11/2025 9:36 AM EDT0.4 mg sennosides-docusate sodium (SENOKOT-S) 8.6-50 mg 1 tablet 1 tablet, oral, Every 12 hours PRN, constipation, Starting on Fri01/10/25 at 0446 sodium chloride 0.9 % flush 10 mL 10 mL, intravenous, As needed, line care, Starting on Fri01/10/25 at 0259 Given01/10/2025 3:24 AM EDT10 mL sodium chloride 0.9 % flush 10 mL 10 mL, intravenous, Once in imaging, line care, Nuclear Medicine, Starting on Fri01/11/25 at 0800,For 1 dose Given01/11/2025 9:36 AM EDT10 mL sodium chloride 0.9 % flush 10 mL 10 mL, intravenous, Once in imaging, line care, Nuclear Medicine, Starting on Fri01/11/25 at 0800,For 1 dose Given01/11/2025 7:50 AM EDT10 mL sodium chloride 0.9 % flush 3 mL 3 mL, intravenous, As needed, line care, before and after each intermittent use, Starting on Fri01/11/25 at 0749, Intra-Procedure (CV) sodium chloride 0.9 % flush 3 mL 3 mL, intravenous, Every 12 hours scheduled, First dose on Fri01/11/25 at 0900, Intra-Procedure (CV) sodium chloride 0.9 % radiology injection 80 mL, intravenous, Once in imaging, pre/post contrast, Starting on Fri01/10/25 at 0259, For 1 dose Given01/10/2025 3:24 AM EDT80 mLdocumented in this encounter Active and Recently Administered Medications Times are shown in EDT.Medication Order/ enoxaparin (LOVENOX) syringe 40 mg 40 mg, subcutaneous, Every 24 hours scheduled, First dose on Fri01/11/25 at 0600, Look-alike/sound-alike medication - verify indication for use. * 0613 (Given - Provider: Heather Robles RN) gabapentin (NEURONTIN) capsule 300 mg 300 mg, oral, Daily, First dose on Fri01/10/25 at 1900, Look-alike/sound-alike medication - verifyindication for use. * 2027 (Given - Provider: Heather Robles RN) * 1005 (Given - Provider: Amber Bae, ROSS) HYDROcodone-acetaminophen (NORCO) 5-325 mg per tablet 1 tablet 1 tablet, oral, Daily, First dose on Fri01/10/25 at 1900, Look-alike/sound-alike medication - verify indication for use. * 2027 (Given - Provider: Heather Robles RN) * 1005 (Given - Provider: Amber Bae, RN) regadenoson (LEXISCAN) injection 0.4 mg (COMPLETED) 0.4 mg, intravenous, Once, On Fri01/11/25 at 0800, For 1 dose, Intra-Procedure (CV), Administer over 10 seconds followed by 5 mL saline flush. * 0936 (Given - Provider: Alissa Russo RN) sodium chloride 0.9 % flush 3 mL 3 mL, intravenous, Every 12 hours scheduled, First dose on Fri01/11/25 at 0900, Intra-Procedure (CV) * 0900 (Not Given - Provider: Amber Bae, ROSS - Reason: Patient not available) Medication Order// acetaminophen (TYLENOL) tablet 650 mg 650 mg, oral, Every 6 hours PRN, mild pain - pain scale 1-3, temperature greater than 38 C, Starting on Fri01/10/25 at 0446, [Warning: Total Acetaminophen not to exceed more than 4 grams (4000 mg) in 24 hours] alum-mag hydroxide-simeth (MAALOX) 200-200-20 mg/5 mL suspension 30 mL 30 mL, oral, 4 times daily after meals and at bedtime as needed, dyspepsia, Starting on Fri01/10/25 at 0446, Look-alike/sound-alike medication - verify indication for use. Laurentke well., Indications: dyspepsia iohexoL (OMNIPAQUE) 350 mg iodine/mL injection 100 mL (COMPLETED) 100 mL, intravenous, Once in imaging, contrast, Starting on Fri01/10/25 at 0259, For 1 dose, VESICANT (RED) * 0324 (Given - Provider: Prabha Valverde) kit for Tc 99m-sestamibi injection 10 millicurie (COMPLETED) 10 millicurie, intravenous, Once in imaging, contrast, Radiopharmaceutical, Starting on Fri01/11/25 at 0800, For 1 dose, Indications: diagnostic imaging * 0750 (Given - Provider: Justina Dunn - Comment: 10.3 mCi Cardiolite) kit for Tc 99m-sestamibi injection 30 millicurie (COMPLETED) 30 millicurie, intravenous, Once in imaging, contrast, Radiopharmaceutical, Starting on Fri01/11/25 at 0800, For 1 dose, Indications: diagnostic imaging * 0936 (Given - Provider: Justina Dunn - Comment: 30.8 mCi Cardiolite) magnesium sulfate IVPB 2000 mg/50 mL in iso-osmotic water (40 mg/mL premix) 2,000 mg, intravenous, at 25 mL/hr, Administer over 120 Minutes, As needed, Magnesium level 1.7-1.9, Starting on Fri01/10/25 at 0447, Recheck magnesium level 4 hours after infusion complete. With each magnesium result continue the replacement orders as needed. * 1126 (New Bag - Provider: Amber Bae, ROSS) * 1241 (Stop Bag - Provider: Amber Bae, ROSS) magnesium sulfate IVPB 4000 mg/100 mL in iso-osmotic water (40 mg/mL premix) 4,000 mg, intravenous, at 25 mL/hr, Administer over 240 Minutes, As needed, Magnesium level 1.6 mg/dL or less, Starting on Fri01/10/25 at 0447, Recheck magnesium level 4 hours after infusion complete. With each magnesium result continue the replacement orders as needed. * 1032 (Canceled Entry - Provider: Amber Bae, ROSS) nitroglycerin (NITROSTAT) disintegrating tablet 0.4 mg 0.4 mg, sublingual, Every 5 min PRN, chest pain, Starting on Fri01/10/25 at 0512, Administer up to3 doses. Hold nitrates and notify prescriber as needed for Systolic Blood Pressure less than 100 mmHg. ondansetron (PF) (ZOFRAN) injection 4 mg 4 mg, intravenous, Every 4 hours PRN, nausea, vomiting, Starting on Fri01/10/25 at 0446, Intravenous administration preferred to be given over 2-5 minutes. potassium chloride (KAYCIEL) 20 mEq/15 mL solution 30-40 mEq(Linked Group 1) 30-40 mEq, oral, As needed, Potassium Supplementation, Starting on Fri01/10/25 at 0447, Progress to oral potassium replacement when patient tolerating oral intake. If dose administered, recheck potassium level 4 hours after last dose. For potassium level 3.4 to 3.8 mmol/L and GFR 30 mL/min or greater=30 mEq. For potassium level 3.1 to 3.3 mmol/L and GFR 30 mL/min or greater=40 mEq. For potassiumlevel 3 mmol/L or less and GFR 30 mL/min or greater=50 mEq. Must dilute before use - Mix in 3-8 ounces of water or juice before administration When administering in feeding tube, flush before and after per policy and monitor potassium levels * 1123 (See Alternative - Provider: Amber Bae RN) potassium chloride (KLOR-CON M 20) CR tablet 30-40 mEq(Linked Group 1) 30-40 mEq, oral, As needed, Potassium Supplementation, Starting on Fri01/10/25 at 0447, Progress to oral potassium replacement when patient tolerating oral intake. If dose administered, recheck potassium level 4 hours after last dose. For potassium level 3.4 to 3.8 mmol/L and GFR 30 mL/min or greater=30 mEq. For potassium level 3.1 to 3.3 mmol/L and GFR 30 mL/min or greater=40 mEq. For potassiumlevel 3 mmol/L or less and GFR 30 mL/min or greater=50 mEq. Do not crush or chew. * 1123 (Given - Provider: Amber Bae RN) potassium chloride IVPB 10 mEq/100 mL in water (0.1 mEq/mL premix)(Linked Group 1) 10 mEq, intravenous, at 100 mL/hr, Administer over 60 Minutes, As needed, POTASSIUM REPLACEMENT, Starting on Fri01/10/25 at 0447, IV if unable to use oral/enteral with the current dosing strategies Potassium level 3 mmol/L or less administer Potassium Chloride 50 mEq Potassium level 3.1 to 3.3 mmol/L administer Potassium Chloride 40 mEq Potassium level 3.4 to 3.8 mmol/L administer Potassium Chloride 30 mEq Use central line when applicable. Recheck potassium level 1 hour after total IVPB infusion complete, With each potassium result continue the replacement orders as needed VESICANT (YELLOW) Infuse each 10 mEq over a minimum of 1 hour. * 1123 (See Alternative - Provider: Amebr Bae, ROSS) sennosides-docusate sodium (SENOKOT-S) 8.6-50 mg 1 tablet 1 tablet, oral, Every 12 hours PRN, constipation, Starting on Fri01/10/25 at 0446 sodium chloride 0.9 % flush 10 mL 10 mL, intravenous, As needed, line care, Starting on Fri01/10/25 at 0259 * 0324 (Given - Provider: Prabha Valverde) sodium chloride 0.9 % flush 10 mL (COMPLETED) 10 mL, intravenous, Once in imaging, line care, Nuclear Medicine, Starting on Fri01/11/25 at 0800,For 1 dose * 0936 (Given - Provider: Justina Dunn) sodium chloride 0.9 % flush 10 mL (COMPLETED) 10 mL, intravenous, Once in imaging, line care, Nuclear Medicine, Starting on Fri01/11/25 at 0800,For 1 dose * 0750 (Given - Provider: Justina Dunn) sodium chloride 0.9 % flush 3 mL 3 mL, intravenous, As needed, line care, before and after each intermittent use, Starting on Fri01/11/25 at 0749, Intra-Procedure (CV) sodium chloride 0.9 % radiology injection (COMPLETED) 80 mL, intravenous, Once in imaging, pre/post contrast, Starting on Fri01/10/25 at 0259, For 1 dose * 0324 (Given - Provider: Prabha Valverde) Order Group 1: potassium chloride (KLOR-CON M 20) CR tablet 30-40 mEqJump to med 30-40 mEq, oral, As needed, Potassium Supplementation, Starting on Fri01/10/25 at 0447, Progress to oral potassium replacement when patient tolerating oral intake. If dose administered, recheck potassium level 4 hours after last dose. For potassium level 3.4 to 3.8 mmol/L and GFR 30 mL/min or greater=30 mEq. For potassium level 3.1 to 3.3 mmol/L and GFR 30 mL/min or greater=40 mEq. For potassiumlevel 3 mmol/L or less and GFR 30 mL/min or greater=50 mEq. Do not crush or chew. Or potassium chloride (KAYCIEL) 20 mEq/15 mL solution 30-40 mEqJump to med 30-40 mEq, oral, As needed, Potassium Supplementation, Starting on Fri01/10/25 at 0447, Progress to oral potassium replacement when patient tolerating oral intake. If dose administered, recheck potassium level 4 hours after last dose. For potassium level 3.4 to 3.8 mmol/L and GFR 30 mL/min or greater=30 mEq. For potassium level 3.1 to 3.3 mmol/L and GFR 30 mL/min or greater=40 mEq. For potassiumlevel 3 mmol/L or less and GFR 30 mL/min or greater=50 mEq. Must dilute before use - Mix in 3-8 ounces of water or juice before administration When administering in feeding tube, flush before and after per policy and monitor potassium levels Or potassium chloride IVPB 10 mEq/100 mL in water (0.1 mEq/mL premix)Jump to med 10 mEq, intravenous, at 100 mL/hr, Administer over 60 Minutes, As needed, POTASSIUM REPLACEMENT, Starting on Fri01/10/25 at 0447, IV if unable to use oral/enteral with the current dosing strategies Potassium level 3 mmol/L or less administer Potassium Chloride 50 mEq Potassium level 3.1 to 3.3 mmol/L administer Potassium Chloride 40 mEq Potassium level 3.4 to 3.8 mmol/L administer Potassium Chloride 30 mEq Use central line when applicable. Recheck potassium level 1 hour after total IVPB infusion complete, With each potassium result continue the replacement orders as needed VESICANT (YELLOW) Infuse each 10 mEq over a minimum of 1 hour. documented in this encounter Care Teams Team MemberRelationshipSpecialtyStart DateEnd Date Noemi Bang DO [address] [place] [id number] PCP - GeneralInternal Ejjeuarx96/20/25documented as of this encounter
[2025-01-18] VITALS (12 sets, daily range): BP systolic 135; BP diastolic 82; PULSE 71–97; TEMP 36.9; O2SAT 99; BMI 25.1
--- OUTSIDE RECORDS SUMMARY | 2025-01-18 12:25 | XMS_ITS | Encounter Summary ---
Author Organization [facility] Address [address], [address] [place] [address] Care Team Providers Care Radiation Control Specialist Name Role Phone BryceFrancis deal Octavio ALVARADO Primary Care Provider + [phone] Reason for Visit * ReasonCommentsAbdominal PainGeneralized abd pain onset this AM with dizziness and nausea. Denies diarrhea/constipation/emesis/urinary complaints Encounter Details DateTypeDepartmentCare Team (Latest Contact Info)Taznmtawzvl67/28/2025 12:25 PM EDT - 01/18/2025 2:58 PM EDTEPer[facility] [address] [place], [place] [id number] Discharge Disposition: Home or Self Care Social History Tobacco UseTypesPacks/DayYears UsedDateSmoking Tobacco: FormerCigarettes Smokeless Tobacco: Never Tobacco Cessation:Counseling Given: Not Answered Alcohol UseStandard Drinks/WeekCommentsYes0 (1 standard drink = 0.6 oz pure alcohol)socialAUDIT-CAnswerDate RecordedQ1: How often do you have a drink containing alcohol?Monthly or less10/10/2024Q2: How many drinks containing alcohol do you have on a typical day when you are drinking?1 or Q3: How often do you have six or more drinks on one occasion?Less than monthly 10/10/2024UDIT-CAnswerDate RecordedQ1: How often do you have a drink containing alcohol?Never01/18/2025Q2: How many drinks containing alcohol do you have on a typical day when you are drinking?1 or Q3: How often do you have six or more drinks on one occasion?Less than qagoqel3801/18/2025Interpersonal Safety Domain Source: IP Abuse ScreeningAnswerDate RecordedPhysical abuseDenies 12/25/2024Verbal dbzwlGvxgiw41/04/2025Emotional hslfiMzldnn44/04/2025Financial dbyzeXsbynb99/04/2025Sexual jptmkSauvxr94/04/2025Sex and Gender InformationValue Date RecordedSex Assigned at BirthNot on fileLegal MlyKwfb8009/11/2023 12:53 PM EDTGender IdentityNot on fileSexual OrientationNot on filedocumented as of this encounter Last Filed Vital Signs Vital SignReadingTime TakenCommentsBlood Bbnvbalb279/7601/18/2025 12:32 PM EDT Fsngk5204/28/2025 12:32 PM HMNVkuclsmdnho06.6 ??C (97.8 ??F)01/18/2025 12:32 PM EDTRespiratory Atjf7499 12:32 PM EDTOxygen Qgwxbdukpw90%01/18/2025 12:32 PM EDTInhaled Oxygen Concentration--Kijpvr49.6 kg (180 lb)01/18/2025 12:32 PM OLCQudfxd342.3 cm (5' 11 )01/18/2025 12:32 PM EDTBody Mass Index25.110 12:32 PM EDTdocumented in this encounter Functional Status documented as of this encounter Medications at Time of Discharge MedicationSigDispense QuantityRefillsLast FilledStart DateEnd Date HYDROcodone-acetaminophen (NORCO) 5-325 MG per tablet Take 1 tablet by mouth daily. gabapentin (NEURONTIN) 300 MG capsule Take 1 capsule by mouth every 6 hours as needed (As needed for pain) for up to 7 days. 24 capsule 12/25/2024 vitamin D (ERGOCALCIFEROL) 1.25 MG (11876 UT) CAPS capsule Take 1 capsule by mouth once a week 12 capsule documented as of this encounter Plan of Treatment DateTypeDepartmentCare Team (Latest Contact Info)Opecnbvysnf45/20/2025 8:15 AM ESTOffice Visit [facility] [address] [place] [id number] Martinez Wilkinson [place] [address] [place] [address] 12 week f/udocumented as of this encounter Visit Diagnoses Not on filedocumented in this encounter Care Teams Team MemberRelationshipSpecialtyStart DateEnd Date Francis Bang DO [address] [facility] [address] [place] [address] PCP - GeneralInternal Medicine10/10/24documented as of this encounter
--- OUTSIDE RECORDS SUMMARY | 2025-01-18 16:07 | XMS_ITS | Patient Health Record ---
Author Organization [facility] Address [address] [place], [place] [id number] Care Team Providers Care Hide Dyer Name Role Phone Sharan Gatica Unavailable [phone] Allergies No Known Allergies Reason For Referral No Information Plan Of Treatment No Information Insurance Providers Payer Name Payer Address Payer Phone Subscriber Number Group Number Insured Name Patient Relationship to Insured Coverage Start Date Coverage End Date [facility] [address] [place] [address] [id number] Janie Rojas - [facility] the [facility] [address] [place], [place] [id number], DemarcusSelf - patient is the insured 2022
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
--- OUTSIDE RECORDS SUMMARY | 2025-01-18 16:07 | XMS_ITS | Encounter Summary ---
[facility] Organization [facility] tem Address [id number] [address] [place] [address] Care Team Providers Care Architecture Professor Name Role Phone Francis Bang DO Primary Care Provider + [phone] Encounter Details DateTypeDepartmentCare Team (Latest Contact Info)Yeskavxnwar55/20/2025Travel Social History Tobacco UseTypesPacks/DayYears UsedDateSmoking Tobacco: Every Day Vaping/E-cigarettesSmokeless Tobacco: NeverAlcohol UseStandard Drinks/Week ZkylnyjeMeb22 (1 standard drink = 0.6 oz pure alcohol)sociallyChildcareAnswer Date LdvcrenfUbrachubqMcebsjp14/10/2019EmploymentAnswerDate RecordedEmployment Ttwktmo7108/31/2018Hunger ScreeningAnswerDate RecordedWithin the past 12 months we worried whether our food would run out before we got money to buy more.Never True01/10/2025Within the past 12 months the food we bought just didn't last and we didn't have money to get more.Never True01/10/2025Purpose - LifeAnswerDate RecordedPurpose and direction in cryuCfubfeb72/10/2021ex and Gender Information ValueDate RecordedSex Assigned at BirthNot on fileLegal IqfVrkx8010/25/2014 11:56 AM EDTGender IdentityNot on fileSexual OrientationNot on filedocumented as of this encounter Plan of Treatment DateTypeDepartmentCare Team (Latest Contact Info)Cgttztejknl53/03/2025 2:00 PM ESTAppointment [facility] [address] [place] [phone] 02/01/2025 1:00 PM ESTOffice Visit [facility] [address] [place] [phone] Daya Santos, OPTIC FIBRE DRAWER-ACADEMIC ADVISOR [address] [place] [address] Randi Albrecht, PA-C [address] [place] [address] documented as of this encounter Goals GoalPatient Goal TypeAssociated ProblemsRecent ProgressPatient-Stated?Author Home with self care Kyra Fernandes, ROSS Note: Evaluation of progress towards goal: Patient plans to return home with self care. documented as of this encounter Visit Diagnoses Not on filedocumented in this encounter Care Teams Team MemberRelationshipSpecialtyStart DateEnd Date Francis Bang DO [address] [place] [address] PCP - GeneralInternal Ajdcbuey12/20/25documented as of this encounter
--- OUTSIDE RECORDS SUMMARY | 2025-01-18 16:07 | XMS_ITS | Encounter Summary ---
Author Organization [facility] Address [address], [address] [place] [address] Care Team Providers Care Regional Medical Director Name Role Phone TerrellFrancis tanner Octavio ALVARADO Primary Care Provider [phone] Encounter Details DateTypeDepartmentCare Team (Latest Contact Info)Ykwqtbmxryn51/28/2025Travel Social History Tobacco UseTypesPacks/DayYears UsedDateSmoking Tobacco: FormerCigarettes Smokeless Tobacco: NeverAlcohol UseStandard Drinks/WeekCommentsYes0 (1 standard drink = 0.6 oz pure alcohol)socialAUDIT-CAnswerDate RecordedQ1: How often do you have a drink containing alcohol?Monthly or less10/10/2024Q2: How many drinks containing alcohol do you have on a typical day when you are drinking?1 or 2 10/10/2024Q3: How often do you have six or more drinks on one occasion?Less than hejfuok1010/10/2024UDIT-CAnswerDate RecordedQ1: How often do you have a drink containing alcohol?Never01/18/2025Q2: How many drinks containing alcohol do you have on a typical day when you are drinking?1 or Q3: How often do you have six or more drinks on one occasion?Less than bpjjyjg2501/18/2025Interpersonal Safety Domain Source: IP Abuse ScreeningAnswerDate RecordedPhysical abuseDenies 12/25/2024Verbal eymfpHkocmx58/04/2025Emotional bcvhrSbpjoy54/04/2025Financial cksfsQpnnzy13/04/2025Sexual zdycgKetdap58/04/2025Sex and Gender InformationValue Date RecordedSex Assigned at BirthNot on fileLegal MqiAamv2809/11/2023 12:53 PM EDTGender IdentityNot on fileSexual OrientationNot on filedocumented as of this encounter Functional Status documented as of this encounter Plan of Treatment DateTypeDepartmentCare Team (Latest Contact Info)Wmlbczlnenq28/20/2025 8:15 AM ESTOffice Visit [facility] [address] [facility] [address] [place] [address] Martinez Wilkinson PA [address] [place] [address] 12 week f/udocumented as of this encounter Visit Diagnoses Not on filedocumented in this encounter Care Teams Team MemberRelationshipSpecialtyStart DateEnd Date Francis Bang DO [address] [facility] [address] [place] [address] PCP - GeneralInternal Medicine10/10/24documented as of this encounter
--- NOTE | 2025-01-18 16:22 | ED_ITS ---
HPI HPI - General Adult General Chief complaint: Chest Pain Stated complaint: Abdominal Pain Time Seen by Provider: 01/18/25 16:13 Source: patient Mode of arrival: walk-in Limitations: no limitations History of Present Illness HPI narrative: Patient is a 34-year-old male that presents with complaints of right lower quadrant abdominal pain, nausea, and heart palpitations that started this morning. He he notes that his nausea has resolved and he is not having any heart palpitations, but is still having some right lower quadrant pain. He states his last bowel movement was probably a few days ago, that is not normal for him. He denies any diarrhea. He denies chest pain or shortness of breath. He notes that he was admitted to [facility] last week for 5 days for heart issues. It sounds like his troponin was elevated and he was bradycardic a few times on the monitor. He does note that at 1 point in his life he was in atrial fibrillation on a monitor. He has never seen a patient access and was never placed on any medication for this. He did present initially to [facility] ER but left and came here secondary to the wait time. Related Data Home Medications ?Medication ?Instructions ?Recorded ?Confirmed No Known Home Medications 07/22/2412/23 Allergies Allergy/AdvReac Type Severity Reaction Status Date / Time No Known Drug Allergies Allergy Verified 01/18/25 16:11 Opioid HPI Opioid Management Most Recent Opioid Data: Last Pain Scale 4 Today, 16:22 Review of Systems ROS Status of ROS 10 or more systems reviewed and unremark able except as noted in history and below PFSH PFS Social History Little interest or pleasure in doing things: not at all Feeling down, depressed, or hopeless: not at all Exam Narrative Exam Narrative: General: No distress, age-appropriate Skin: Warm, dry, no pallor. No rash. Head: Normocephalic, atraumatic. Neck: Supple, non-tender. Eye: Pupils are equal, round and EOMI. No scleral icterus. Ears, Nose, Mouth, and Throat: No nasal mucosal hypertrophy. Oral mucosa is moist, no posterior oropharynx erythema, uvula is mid-line Cardiovascular: Regular Rate and Rhythm without murmur, gallop or rub. Respiratory: No accessory muscle use or respiratory distress. Lungs are clear to auscultation, no wheezing, rales or rhonchi Chest Wall: no tenderness Back: No midline thoracic or lumbar vertebral tenderness. Musculoskeletal: Full ROM of all extremities, no calf or popliteal tenderness GI: Abdomen is soft, non-distended, RLQ tender with palpation. No masses appreciated. No rebound, guarding, or rigidity noted. Neurological: A&O x4. No cranial nerve dysfunction observed. No truncal ataxia. Moves all extremities. Sensation intact. Psychiatric: Cooperative and interactive. Normal mood and affect. Constitutional Vital Signs, click to edit/add: Last Vital Signs Temp 98.4 F 01/18/25 16:06 Pulse 73 01/18/25 17:40 Resp 18 01/18/25 17:40 BP 135/82 01/18/25 16:08 Pulse Ox 99 01/18/25 16:06 Documenting provider has reviewed patient's vital signs: yes Course Vital Signs Vital signs: Vital Signs Temperature 98.4 F 01/18/25 16:06 Pulse Rate 79 01/18/25 16:06 Respiratory Rate 18 01/18/25 16:06 Blood Pressure 135/82 01/18/25 16:06 Pulse Oximetry 99 01/18/25 16:06 Temperature 98.4 F 01/18/25 16:06 Pulse Rate 73 01/18/25 17:40 Respiratory Rate 18 01/18/25 17:40 Blood Pressure 135/82 01/18/25 16:08 Pulse Oximetry 99 01/18/25 16:06 Medical Decision Making MDM Narrative Medical decision making narrative: This is a 34-year-old male that presents with complaints of RLQ abdominal pain that started this morning, last BM a few days ago. When the pain first started he was having some heart palpitations, no chest pain, no shortness of breath. The palpitations have resolved and his pain has decreased. He did initially present to [facility] and the wait was too long so presented here. 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 He never saw cardiology or had treatment for this. He also notes he was admitted to [facility] last week with heart issues. This included what sounds like elevated troponins and 2 episodes of bradycardia into the heart rate 20s on the monitor. On arrival patient is in no distress, minimal RLQ pain with palpation. No chest pain, no shortness of breath, patient speaks in full sentences. Vitals are hemodynamically stable. Temperature is afebrile at 98.4 ?F. IV placed. EKG, troponin, chest x-ray, CBC, CMP, lipase, CT ab/pel with IV contrast ordered. Medical records requested from [facility]. Labs CBC: No leukocytosis, Hgb 14.8 CMP: Alk phos elevated 149, no comparison available Troponin within normal limits Lipase within normal limits EKG normal sinus rhythm, nonspecific ST elevation, no ischemic changes. Chest x-ray no acute cardiopulmonary pathology CT abdomen/pelvis negative acute inflammatory process or bowel obstruction. UA not collected. I did go ahead to update patient about his results. He states that he does have a cardiology appointment set up already from his admission with [facility]. He states that he has to leave and is not going to stay to provide UA. The patient was informed of the recommended evaluation and treatment plan, including the risks of leaving prior to completion of the medical workup. The potential risks were discussed in detail worsening pain. The patient verbalized understanding of these risks, demonstrated capacity to make medical decisions, and chose to leave against medical advice (AMA). The patient was advised to return to the emergency department at any time for worsening symptoms such as increased pain, weakness, numbness, bowel or bladder incontinence, fever, or any new concerning changes. Discharge instructions and follow-up recommendations were reviewed with the patient, and the patient acknowledged understanding. Differential Diagnosis Differential Diagnosis: Appendicitis, constipation, electrolyte abnormalities Lab Data Lab results reviewed: Yes I reviewed the patient's lab results Labs: Lab Results 01/18/25 Range/Units 16:36 WBC 8.7 (4.0-11.0) 10^3/uL RBC 5.10 (4.70-6.10) 10^6/uL Hgb 14.8 (14.0-18.0) g/dL Hct 43.0 (42.0-54.0) % MCV 84.3 (80.0-94.0) fL MCH 29.0 (25.9-34.0) pg MCHC 34.4 (29.9-35.2) g/dL RDW 13.0 (11.0-15.0) % Plt Count 271 (150-450) 10^3/uL MPV 10.8 (9.5-13.5) fL Neut % (Auto) 64.2 (43.0-75.0) % Lymph % (Auto) 25.9 (20.5-60.0) % [place] % (Auto) 8.1 (1.7-12.0) % Eos % (Auto) 0.9 (0.9-7.0) % Baso % (Auto) 0.6 (0.2-2.0) % Neut # (Auto) 5.6 (1.4-6.5) 10^3/uL Lymph # (Auto) 2.3 (1.2-3.8) 10^3/uL [place] # (Auto) 0.7 (0.3-0.8) 10^3/uL Eos # (Auto) 0.1 (0.0-0.7) 10^3/uL Baso # (Auto) 0.1 (0.0-0.1) 10^3/uL Abs Immat Gran (auto) 0.03 (0.00-0.03) 10^3/uL Imm/Tot Granulo (auto) 0.3 (0.0-0.5) % Sodium 137 (136-145) mmol/L Potassium 4.2 (3.5-5.1) mmol/L Chloride 102 (98-107) mmol/L Carbon Dioxide 29.5 (21.0-32.0) mmol/L Anion Gap 9.7 BUN 10.0 (7.0-18.0) mg/dL Creatinine 1.04 (0.70-1.30) mg/dL Est GFR ( Amer) >60 (>=60 mL/min/1.73m^2) Est GFR (Non-Af Amer) >60 (>=60 mL/min/1.73m^2) BUN/Creatinine Ratio 9.6 Glucose 75 (74-106) mg/dL Calcium 9.4 (8.5-10.1) mg/dL Total Bilirubin 0.6 (0.2-1.0) mg/dL AST 17 (15-37) U/L ALT <6 L (16-63) U/L Alkaline Phosphatase 149 H (46-116) U/L Troponin I High Sens 4.4 (4.0-76.1) pg/mL Total Protein 7.6 (6.4-8.2) g/dL Albumin 3.6 (3.4-5.0) g/dL Globulin 4.0 g/dL Albumin/Globulin Ratio 0.9 Lipase 20.0 (16.0-77.0) U/L Imaging Data CT scan - abdomen: Attestation: I have reviewed the pertinent imaging results. Radiologist's impression: ITS Impressions Abdomen/Pelvis CT 01/18/25 16:28 IMPRESSION: Negative acute inflammatory process or bowel obstruction. Impression dictated by: Rk Logan M.D. 01/18/2025 5:41 PM Dictation Location: [employer] [employer] Electronically authenticated by: [id number] Y Date: 01/18/2025 17:41 Chest X-Ray 01/18/25 16:28 IMPRESSION: NEGATIVE CHEST. Impression dictated by: Rk Logan M.D. 01/18/2025 5:39 PM Dictation Location: [employer] Electronically authenticated by: [id number] Y Date: 01/18/2025 17:39 ECG Data Attestation: ?I have reviewed the pertinent ECG results. Discharge Plan Discharge Stand Alone Forms: Portal Instructions Chief Complaint: Chest Pain Clinical Impression: Abdominal pain, Heart palpitations Patient Disposition: Left Against Medical Advice Prescriptions / Home Meds: No Action No Known Home Medications Print Language: Anguillan Referrals: Physician,Non-Staff, MD [Primary Care Provider] - 1 week Discharge Date/Time: 01/18/25 19:10
--- NOTE | 2025-01-18 16:28 | XR_ITS ---
The [address] [address] Patient Name: TITO LONG MRN: [id number] date: 1990 Sex: M Assigned Patient Location: ER Current Patient Location: ER Accession/Order Number: [id number] Exam Date: 01/18/2025 16:50 Report Date: 01/18/2025 17:39 At the request of: EVELYN REYES Procedure: XR chest 1V PA CHEST: CLINICAL HISTORY: Heart Palpitations COMPARISON: None The heart is normal in size. The lungs are clear. The pulmonary vasculature is normal. Mediastinum and hilar regions are unremarkable. No pleural effusions are seen. Visualized bones are intact. XR/XR chest 1V IMPRESSION: NEGATIVE CHEST. Impression dictated by: kR Logan M.D. 01/18/2025 5:39 PM Dictation Location: [place] [address] Electronically authenticated by: [id number] Y Date: 01/18/2025 17:39
--- NOTE | 2025-01-18 16:28 | ECG_ITS ---
The [facility] Test Date: 2025-01-18 Pat Name: TITO LONG Department: Room: - Gender: Male Rn Informatics: : 1990 Requested By: Chaz Mcadams Order Number: [id number] Reading MD: ESTEFANÍA DODGE M.D. Measurements Intervals [place] Rate: 80 P: 72 [place]: 140 QRS: 59 QRSD: 78 T: 43 QT: 356 QTc: 393 Interpretive Statements 1100 Sinus rhythm [address] elevation 9130 borderline ECG No previous ECG available for comparison Electronically Signed On 01-18-2025 18:59:26 EDT by ESTEFANÍA DODGE M.D.
--- NOTE | 2025-01-18 16:28 | CT_ITS ---
[address] [address] Patient Name: TITO LONG MRN: [id number] date: 1990 Sex: M Assigned Patient Location: ER Current Patient Location: ER Accession/Order Number: [id number] Exam Date: 01/18/2025 16:50 Report Date: 01/18/2025 17:41 At the request of: EVELYN REYES Procedure: CT abdomen pelvis w con CT ABDOMEN AND PELVIS WITH INTRAVENOUS CONTRAST: CLINICAL HISTORY: RLQ tenderness, no abdominal surgical history COMPARISON: None TECHNIQUE: Spiral images were obtained through the abdomen and pelvis following the administration of intravenous contrast. This CT exam was performed using one or more following dose reduction techniques: Automated exposure control, adjustment of the mA and/or kV according to patient size, or use of iterative reconstruction technique. FINDINGS: Lung Bases: [Lung bases are clear.] Organs:Liver, gallbladder, spleen, adrenals, kidneys, pancreas unremarkable.[ GI: Mild retained stool. No bowel obstruction. Appendix unremarkable. No periappendiceal fat stranding.[ Pelvis:[Mild bladder distention. Prostate unremarkable.] Peritoneum/Retroperitoneum:No free air or fluid. No bulky adenopathy. Aorta normal caliber.[ Abd wall/Bones:No suspicious osseous lesion. Minimal endplate spurring L5-S1.[ CT/CT abdomen pelvis w con IMPRESSION: Negative acute inflammatory process or bowel obstruction. Impression dictated by: Rk Logan M.D. 01/18/2025 5:41 PM Dictation Location: [place] [address] Electronically authenticated by: [id number] Y Date: 01/18/2025 17:41
[2025-01-18 17:06] LABS: Hematocrit 43.0 % (42.0-54.0); Hemoglobin 14.8 g/dL (14.0-18.0); Immature Granulocytes Abs Auto 0.03 10^3/uL (0.00-0.03); Immature Granulocytes Pct Auto 0.3 % (0.0-0.5); Lymphocytes Absolute Auto 2.3 10^3/uL (1.2-3.8); Mean Corpuscular HGB Conc 34.4 g/dL (29.9-35.2); Mean Corpuscular Hemoglobin 29.0 pg (25.9-34.0); Mean Corpuscular Volume 84.3 fL (80.0-94.0); Platelet Count 271 10^3/uL (150-450); Red Blood Count 5.10 10^6/uL (4.70-6.10); White Blood Count 8.7 10^3/uL (4.0-11.0)
[2025-01-18 17:16] LABS: Anion Gap 9.7
[2025-01-18 17:18] LABS: Alanine Aminotransferase <6 U/L (16-63); Albumin Globulin Ratio 0.9; Albumin Level 3.6 g/dL (3.4-5.0); Alkaline Phosphatase 149 U/L (46-116); Aspartate Amino Transferase 17 U/L (15-37); Blood Urea Nitrogen 10.0 mg/dL (7.0-18.0); Calcium 9.4 mg/dL (8.5-10.1); Carbon Dioxide 29.5 mmol/L (21.0-32.0); Chloride 102 mmol/L (98-107); Estimated GFR (African America >60 (>=60 mL/min/1.73m^2); Estimated GFR (Non-African Ame >60 (>=60 mL/min/1.73m^2); Globulin 4.0 g/dL; Glucose 75 mg/dL (74-106); Potassium 4.2 mmol/L (3.5-5.1); Sodium 137 mmol/L (136-145); Total Protein 7.6 g/dL (6.4-8.2)
[2025-01-18 17:21] LABS: Lipase 20.0 U/L (16.0-77.0)
== END 2025-01-18 19:10 | disposition left against medical advice (07) ==
PROVIDERS: Physician Assistant; Emergency Provider Emergency Medicine
DX: R10.31 Right lower quadrant pain (principal); Z53.29 Procedure and treatment not carried out because of patient's decision for other reasons; R00.2 Palpitations
CPT/HCPCS: 36415; 71045; 74177; 80053; 83690; 84484; 85025; 93005; 99285; Q9967